=== PATIENT | male | born 1990 | race Caucasian/White ===

== ENCOUNTER 2019-02-09 20:56 | Emergency (ER) | payer OTHER ==
[~2019-02-09 20:56] MED LIST: CA CHLORIDE 10% 10 ML SYRINGE; DEXTROSE 50% 50 ML SYRINGE; EPINEPHrine 0.1 MG/ML SYG; NA BICARBONATE 8.4% 50 ML SYG
== END 2019-02-10 01:50 | disposition expired ==
LOC: E/R 02-10 01:50
DX: I46.9 Cardiac arrest, cause unspecified (principal); R40.2432 Glasgow coma scale score 3-8, at arrival to emergency department
CPT/HCPCS: 82962; 99285-25